=== PATIENT | female | born 1985 | race Caucasian/White ===

== ENCOUNTER 2020-02-23 15:16 | Outpatient (REF) | payer SELFPAY ==
--- NOTE | 2020-02-23 16:05 | MHC.AU.P13 ---
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 Per previous note, no charge to the patient, as the old mold had ripped due to being provided the wrong tube of tubing. The new left mold fits well. The right mold was also re-tubed today. Recommendations: Recommendations: Patient will call if concerns arise. Diagnosis Code(s): Primary Diagnosis: H90.3 Bilateral Sensorineural Hearing Loss Services Performed: Assorted Hearing Aid Service: No Charge Visit Signature: Provider: Tarun Flor, CCC-A
== END 2020-02-23 15:17 | disposition home or self-care (01) ==
LOC: HO.HAP 15:16
PROVIDERS: PCP Pediatrics; Visit Provider Pediatrics
DX: Z46.1 Encounter for fitting and adjustment of hearing aid (principal)
CPT/HCPCS: 92700

== ENCOUNTER 2020-08-23 09:00 | Outpatient (REF) | payer SELFPAY | END 2020-08-23 09:01 | disposition home or self-care (01) | LOC: HO.HAP 09:00 | PROVIDERS: Visit Provider Pediatrics | DX: Z13.89 Encounter for screening for other disorder (principal) ==

== ENCOUNTER 2020-11-01 13:58 | Outpatient (REF) | payer SELFPAY | END 2020-11-01 13:59 | disposition home or self-care (01) | LOC: HO.HAP 13:58 | PROVIDERS: Visit Provider Pediatrics | DX: Z13.89 Encounter for screening for other disorder (principal) ==

== ENCOUNTER 2021-02-07 15:30 | Outpatient (REF) | payer SELFPAY | END 2021-02-07 15:31 | disposition home or self-care (01) | LOC: HO.HAP 15:30 | PROVIDERS: Visit Provider Pediatrics | DX: Z13.89 Encounter for screening for other disorder (principal) ==

== ENCOUNTER 2023-10-08 13:55 | Outpatient (REF) | payer OTHER, SELFPAY | END 2023-10-08 13:56 | disposition home or self-care (01) | LOC: HO.SH 13:55 | PROVIDERS: Visit Provider Nurse Practitioner | DX: Z01.118 Encounter for examination of ears and hearing with other abnormal findings (principal); H90.3 Sensorineural hearing loss, bilateral | CPT/HCPCS: 92557 ==